=== PATIENT | female | born 1970 | race Two or more races ===

== ENCOUNTER 2018-10-12 21:21 | Emergency (ER) | payer SELFPAY ==
[~2018-10-12] VITALS: Ht 167.6 cm; Wt 94.0 kg
[2018-10-12 23:03] VITALS: BP 156/99
== END 2018-10-13 03:34 | disposition left against medical advice (07) ==
LOC: ER 21:21
DX: Z53.21 Procedure and treatment not carried out due to patient leaving prior to being seen by health care provider (principal)